=== PATIENT | female | born 1980 | race Caucasian/White ===

== ENCOUNTER 2017-06-05 14:53 | Emergency (ER) | payer OTHER ==
[2017-06-05 15:51] VITALS: BP 120/72; PULSE 80; RESP 20; TEMP 98.6; O2SAT 100
--- NOTE | 2017-06-05 16:12 | ED PDOC ---
HPI: Abdomen Time Seen by Provider: 06/05/17 15:58 Chief Complaint (Nursing): GI Problem Chief Complaint (Provider): Vomiting Additional Complaint(s): pt. is a 37 yo female, no PMH, presents into ER c/o N/V/D and abd. cramping x 5 days since returning back from [place]. states she had a fever on Wednesday and Wednesday but fever has subsided. sent from urgent care for further evaluation Past Medical History Reviewed: Nursing Documentation, Vital Signs Vital Signs: Last Vital Signs Temp 98.6 F 06/05/17 15:48 Pulse 80 06/05/17 15:48 Resp 20 06/05/17 15:48 BP 120/72 06/05/17 15:48 Pulse Ox 100 06/05/17 16:12 - Medical History PMH: No Chronic Diseases - Surgical History Surgical History: No Surg Hx - Family History Family History: States: No Known Family Hx - Living Arrangements Living Arrangements: With Family - Social History Current smoker - smoking cessation education provided: No Alcohol: Social Drugs: Denies - Home Medications Home Medications: Ambulatory Orders Medication Instructions Recorded Ciprofloxacin [Cipro] 500 mg PO BID #14 tab 06/05/17 Dicyclomine [Bentyl] 10 mg PO QID PRN #10 cap 06/05/17 Ondansetron ODT [Zofran ODT] 4 mg PO Q6 PRN #10 odt 06/05/17 - Allergies Allergies/Adverse Reactions: Allergies Allergy/AdvReac Type Severity Reaction Status Date / Time No Known Allergies Allergy Verified 06/05/17 15:47 Review of Systems ROS Statement: Except As Marked, All Systems Reviewed And Found Negative Gastrointestinal: Positive for: Abdominal Pain, Diarrhea Physical Exam - Reviewed Nursing Documentation Reviewed: Yes Vital Signs Reviewed: Yes - Physical Exam Appears: Positive for: Well, Non-toxic, No Acute Distress Head Exam: Positive for: ATRAUMATIC, NORMAL INSPECTION, NORMOCEPHALIC Skin: Positive for: Normal Color, Warm, DRY Eye Exam: Positive for: EOMI, Normal appearance, PERRL ENT: Positive for: Normal ENT Inspection Neck: Positive for: Normal, Painless ROM Cardiovascular/Chest: Positive for: Regular Rate, Rhythm Respiratory: Positive for: CNT, Normal Breath Sounds Gastrointestinal/Abdominal: Positive for: Bowel Sounds, Soft, Tenderness ( epigastric) Back: Positive for: Normal Inspection Extremity: Positive for: Normal ROM Neurologic/Psych: Positive for: Alert, Oriented - Laboratory Results Result Diagrams: 06/05/17 16:48 06/05/17 18:35 - ECG O2 Sat by Pulse Oximetry: 100 Medical Decision Making Medical Decision Making: IV access established and treatment initiated with IVF, Zofran and Pepcid On re-eval, Pt still notes mild epigastric "burning sensation" GI cocktail administered with good relief obtained Labs resulted and reviewed with Pt who demonstrated full understanding Pt remains afrbile on re-eval, abdomen soft, non tedner and non distended. no diarrhea while in ED Disposition - Clinical Impression Clinical Impression: Gastroenteritis - Patient ED Disposition Is Patient to be Admitted: No - Disposition Disposition: Routine/Home Disposition Time: 17:00 Condition: STABLE Prescriptions: Ciprofloxacin [Cipro] 500 mg PO BID #14 tab Dicyclomine [Bentyl] 10 mg PO QID PRN #10 cap PRN Reason: Pain, Mild (1-3) Ondansetron ODT [Zofran ODT] 4 mg PO Q6 PRN #10 odt PRN Reason: Nausea/Vomiting Instructions: Gastroenteritis (ED) Forms: [employer] ([place])
[2017-06-05] MEDS ORDERED: Sodium Chloride 0.9% 1,000 ML IV STA (16:15)
[2017-06-05 16:52] LABS: BASO % 0.3 % (0.0-2.0); EOS # 0.3 K/uL (0.0-0.7); EOS % 2.2 % (0.0-4.0); HEMOGLOBIN 13.6 g/dL (12.0-16.0); LYMPH # 2.5 K/uL (1.0-4.3); LYMPH % 17.1 % (20.0-40.0); MEAN CELL VOLUME 87.7 fl (81.0-99.0); MEAN CORPUSCULAR HGB CONC 34.2 g/dL (33.0-37.0); MEAN PLATELET VOLUME 8.3 fl (7.2-11.7); MONO % 6.7 % (0.0-10.0); NEUT # 10.6 K/uL (1.8-7.0); NEUT % 73.7 % (50.0-75.0); RBC 4.53 Mil/uL (3.80-5.20); RED CELL DISTRIBUTION WIDTH 13.2 % (11.5-14.5); WHITE BLOOD COUNT 14.4 K/uL (4.8-10.8)
[2017-06-05] MEDS ORDERED: Alum-Mag Hydrox-Simethicone Susp (30 mL) PO STA (17:44)
[2017-06-05 17:50] LABS: SQUAMOUS EPITHIAL < 1 /hpf (0-5); URINE BACTERIA RARE (<OCC)
[2017-06-05] MEDS ORDERED: Alum-Mag Hydrox-Simethicone Susp (30 mL) ONE (17:54)
[2017-06-05 17:56] LABS: BLOOD UREA NITROGEN 9 mg/dl (7-17); CALCIUM 9.3 mg/dL (8.4-10.2); GFR AFRICAN-AMERICAN > 60; GFR NON-AFRICAN AMERICAN > 60
[2017-06-05 17:57] LABS: ALB/GLOB RATIO 1.1 (1.0-2.1); ALBUMIN 4.8 g/dL (3.5-5.0)
[2017-06-05 17:58] LABS: ALT/SGPT 12 U/L (9-52); AMYLASE 100 U/L (30-110); AST/SGOT 75 U/L (14-36); LIPASE 96 U/L (23-300)
[2017-06-05 18:57] LABS: URINE BILIRUBIN NEGATIVE (NEGATIVE); URINE CLARITY Clear (Clear); URINE COLOR YELLOW (YELLOW); URINE GLUCOSE (UA) NEGATIVE (Normal)
[2017-06-05 18:58] LABS: PH,URINE 6.5 (5.0-8.0); URINE BLOOD NEGATIVE (NEGATIVE); URINE LEUKOCYTE ESTERASE NEGATIVE Leu/uL (Negative); URINE NITRATE NEGATIVE (NEGATIVE); URINE PROTEIN NEGATIVE (NEGATIVE); URINE UROBILINOGEN 0.2 mg/dL (0.2-1.0)
== END 2017-06-05 20:33 | disposition home or self-care (01) ==
LOC: H.ER 14:53
DX: K52.9 Noninfective gastroenteritis and colitis, unspecified (principal)
CPT/HCPCS: 80053; 81003; 81025; 82150; 83690; 84132; 85025; 87040; 87045; 96374; 96375; 99283; J2405; J7040